=== PATIENT | female | born 1960 | race African-American/Black ===

== ENCOUNTER 2017-01-14 13:26 | Emergency (ER) | payer SELFPAY | END 2017-01-14 16:10 | disposition home or self-care (01) | LOC: D.ER 13:26 | DX: M19.031 Primary osteoarthritis, right wrist (principal); M19.021 Primary osteoarthritis, right elbow; M19.011 Primary osteoarthritis, right shoulder; J45.909 Unspecified asthma, uncomplicated; J44.9 Chronic obstructive pulmonary disease, unspecified; I10 Essential (primary) hypertension ==